=== PATIENT | female | born 1955 | race Caucasian/White ===

== ENCOUNTER 2018-12-26 11:39 | Inpatient (IN) | payer OTHER, BC ==
--- NOTE | 2018-12-26 12:14 | PDOC ---
History of Present Illness - General Chief Complaint: CVA/TIA Stated Complaint: POSSIBLE STROKE Time Seen by Provider: 12/26/18 11:48 History Source: Patient, Family - History of Present Illness Initial Comments: 12/26/18 12:38 63 y/o/f with PMHx of polymyalgia rheumatica and GERD here for weakness and slurred speech that occurred this morning. When she woke up this morning at 0630 she was having some right sided facial pressure similar to when she gets sinus infections. She used a nasal spray and continued her morning routine. Later in the morning she started to feel weak and states she felt weird and nauseous. Her sister gave her a baby aspirin and brought her daughter to come see her around 1100. As per the daughter the patient's speech was slow and slurred. The daughter did not notice any facial drooping but she did notice that the patient's face was more red than usual. Patient was also complaining of some right hand numbness at this time. As per the daughter the patients symptoms improved during the 15 minutes it took for EMS to transfer the patient here. Patient has also had intermittent headaches over the last month with associated blurry vision in both eyes. She has had similar headaches in the past when she has had sinus infections but has not had any sinus infections recently. She denies any vomiting, fever, cough, diarrhea, dysuria, chest pain, SOB, dizziness, or abd pain. Medical Hx: Polymyalgia rheumatica, GERD Surgical Hx: appendectomy - 40+ years ago Social Hx: smokes 1 cigarette a day, denies alcohol and other illicit substance use Past History - Past Medical History Allergies/Adverse Reactions: Allergies Allergy/AdvReac Type Severity Reaction Status Date / Time No Known Allergies Allergy Verified 12/26/18 11:43 - Suicide/Smoking/Psychosocial Hx Smoking History: Current every day smoker Number of Cigarettes Smoked Daily: 1 Information on smoking cessation initiated: No Hx Alcohol Use: No Drug/Substance Use Hx: No Review of Systems - Review of Systems Able to Perform ROS?: Yes Constitutional: Yes: Weakness. No: Chills, Fever HEENTM: No: Double Vision, Nose Congestion Respiratory: No: Cough, Shortness of Breath Cardiac (ROS): No: Chest Pain, Lightheadedness ABD/GI: Yes: Nausea. No: Abdominal Distended, Diarrhea, Vomiting : No: Dysuria Musculoskeletal: No: Back Pain Integumentary: Yes: Flushing Neurological: Yes: Headache, Numbness. No: Tingling *Physical Exam - Vital Signs Last Vital Signs Temp Pulse Resp BP Pulse Ox 98.3 F 83 18 143/82 97 12/26/18 11:43 12/26/18 11:43 12/26/18 11:43 12/26/18 11:43 12/26/18 11:43 - Physical Exam General Appearance: Yes: Nourished HEENT: positive: EOMI, Normal Voice, Symmetrical. negative: Sinus Tenderness Neck: positive: Supple. negative: Tender Respiratory/Chest: positive: Lungs Clear, Normal Breath Sounds. negative: Crackles, Rales, Rhonchi, Wheezing Cardiovascular: positive: Regular Rhythm, Regular Rate, S1, S2 Gastrointestinal/Abdominal: positive: Normal Bowel Sounds, Soft. negative: Tenderness Extremity: positive: Normal Capillary Refill. 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 Patients symptoms resolved in transit to hospital. Patient initially seen by Dr. Haynes. Stroke code activated. CT scan head - negative for acute intracranial pathology CBC, coags, UA grossly normal. Patient has no residual weakness on physical exam. CN nerves 2-12 normal, 5/5 strength upper and lower extremities, normal finger to nose, no loss of sensation. 12/26/18 13:15 CMP shows elevated triglycerides and cholesterol. MRI brain w/contrast and carotid ultrasound ordered. Spoke with Dr. Jain's covering service, awaiting admission. 12/26/18 13:[address] Jain, patient admitted. *DC/Admit/Observation/Transfer Diagnosis at time of Disposition: Slurred speech - Discharge Dispostion Condition at time of disposition: Good - Referrals Referrals: Vaughn Jain MD [Primary Care Provider] - - Patient Instructions - Post Discharge Activity
[2018-12-26 12:28] LABS: BASO % 0.7 % (0-2.0); EOS % 1.7 % (0-4.5); HEMATOCRIT 39.3 % (32.4-45.2); HEMOGLOBIN 13.1 GM/dL (10.7-15.3); LYMPH % 25.8 % (8-40); MCH 28.8 pg (25.7-33.7); MCHC 33.3 g/dl (32.0-36.0); MEAN CELL VOLUME 86.3 fl (80-96); MEAN PLT VOLUME 9.1 fl (7.5-11.1); MONO % 5.8 % (3.8-10.2); PLATELET COUNT 267 K/MM3 (134-434); RBC 4.56 M/mm3 (3.60-5.2); RDW 14.7 % (11.6-15.6); WHITE BLOOD COUNT 6.4 K/mm3 (4.0-10.0)
[2018-12-26 12:31] LABS: PH,URINE 7.5 (5.0-8.0); URINE APPEARANCE CLEAR; URINE BILIRUBIN NEGATIVE (NEGATIVE); URINE COLOR YELLOW; URINE GLUCOSE (UA) NEGATIVE (NEGATIVE); URINE KETONE NEGATIVE (NEGATIVE); URINE LEUK ESTERASE NEGATIVE (NEGATIVE); URINE NITRITE NEGATIVE (NEGATIVE); URINE PROTEIN NEGATIVE (NEGATIVE); URINE UROBILINOGEN 0.2 mg/dL (0.2-1.0)
[2018-12-26] MEDS: SODIUM CHLORIDE 1,000 ML IV SCH (12:34)
[2018-12-26 12:47] LABS: INR 1.09 (0.83-1.09); PROTHROMBIN TIME (PATIENT) 12.9 SEC (9.7-13.0)
[2018-12-26] MEDS ORDERED: ATORVASTATIN CA 80 MG TABLET (FP) PO ONE (12:58)
[2018-12-26] MEDS ORDERED: ASPIRIN 325 MG TABLET PO ONE (12:58)
[2018-12-26 13:00] LABS: BILIRUBIN,TOTAL 0.4 mg/dL (0.2-1); BLOOD UREA NITROGEN 14.3 mg/dL (7-18); CALCIUM 9.3 mg/dL (8.5-10.1); CREATININE 0.8 mg/dL (0.55-1.3); TOT PROT 7.6 g/dl (6.4-8.2)
[2018-12-26] MEDS ORDERED: ATORVASTATIN CA 80 MG TABLET (FP) ONE (13:13)
[2018-12-26] MEDS ORDERED: ASPIRIN 325 MG TABLET ONE (13:13)
[2018-12-26] MEDS ORDERED: ACETAMINOPHEN 325 MG TABLET (FP) PO PRN (13:44)
[2018-12-26] MEDS ORDERED: RANITIDINE HCL 150 MG TABLET (FP) ONE (13:50)
[2018-12-26] MEDS: RANITIDINE HCL 150 MG TABLET (FP) PO SCH ×2 (13:53→21:33)
--- NOTE | 2018-12-26 14:23 | PDOC ---
Documentation entered by Gonzalez Cuh SCRIBE, acting as scribe for Naima Haynes MD. Naima Haynes MD: This documentation has been prepared by the Vlad elizabeth Daniel, SCRIBE, under my direction and personally reviewed by me in its entirety. I confirm that the documentation accurately reflects all work, treatment, procedures, and medical decision making performed by me. Attending Attestation - Resident Resident Name: LizaLiorvolodymyrlucie Elva - ED Attending Attestation I have performed the following: I have examined & evaluated the patient, The case was reviewed & discussed with the resident, I agree w/resident's findings & plan, Exceptions are as noted - HPI HPI: 12/26/18 12:08 The patient is a 63 year old female with a past medical history of polymyalgia rheumatica and diverticulitis here today for evaluation of slurred speech. The patient reports that she woke up this morning and felt like she had a sinus infection and used a nasal spray. She reports that she began to feel weird ( patient could not elaborate more) around 9 AM and took a baby aspirin. Patient s daughter reports that at approximately 11 AM the patients speech became slow and slurred but made sense. Patient reports that she knew what she was saying and also notes that her blood pressure was elevated (systolic 150s). Pt also reports some right hand numbness which started about the same time as her slurred speech. At this time, the slurred speech and right hand weakness have resolved. Also as per the daughter, the patient has been having slow onset, diffuse, intermittent headaches for 1 month with associated bilateral blurry vision which are not present currently. Patient denies lightheadedness. Denies fever, chills. Denies chest pain, shortness of breath. Denies nausea, vomiting, diarrhea, abdominal pain. Allergies: NKA PCP: Vaughn Jain - Physicial Exam PE: 12/26/18 12:08 GENERAL: Awake, alert, and fully oriented, in no acute distress HEAD: No signs of trauma. No temporal ttp. EYES: PERRLA, EOMI, sclera anicteric, conjunctiva clear ENT: Auricles normal inspection, hearing grossly normal, nares patent, oropharynx clear without exudates. Moist mucosa NECK: Normal ROM, supple, no lymphadenopathy, JVD, or masses LUNGS: Breath sounds equal, clear to auscultation bilaterally. No wheezes, and no crackles HEART: Regular rate and rhythm, normal S1 and S2, no murmurs, rubs or gallops ABDOMEN: Soft, nontender, normoactive bowel sounds. No guarding, no rebound. No masses EXTREMITIES: Normal range of motion, no edema. No clubbing or cyanosis. No cords , erythema, or tenderness BACK: No midline spinal tenderness in cervical/thoracic/lumbar region NEUROLOGICAL: Normal speech, cranial nerves intact, negative pronator drift, 5/ 5 strength in all 4 extremities, normal sensation to light touch in all 4 extremities, normal cerebellar exam, normal gait, normal reflexes and tone SKIN: Warm, Dry, normal turgor, no rashes or lesions noted. - Medical Decision Making 12/26/18 12:[address] Sanchez. 12/26/18 13:30 63yo F hx PMR presents to the ED with resolved slurred speech and R hand weakness concerning for TIA vs CVA Vitals wnl Exam with no neuro deficits at this time CTH negative Case discussed with Dr. Sanchez at time of code bradley activation Not TPA candidate as current NIHSS is 0 Dr. Sanchez recommends asa 325, lipior 80, caroid US imaging and MRI brain w/o Pt admitted for further mgmt to Dr. Jain's service Case discussed in detail with admitting physician including history, physical exam and ancillary studies. Admitting physician has assumed care for the patient, will follow all pending diagnostics and will complete the evaluation and treatment. Heart Score/ECG Review #1 12/26/18 14:21 EKG read and int by me: NSR, rate 83, normal axis and intervals. No JUAN. TWI in lead III and flattening in avf. No previous EKG to compare NIH Stroke Scale - Last Known Well Date/Time & Onset Date Last Known Well: 12/26/18 Time Last Known Well: 11:00 - Initial Evaluation Level of consciousness: Alert Ask patient the month and their age: Answers both correctly Ask patient to open & close eyes; make fist and let go: Obeys both correctly Best gaze (horizontal eye movement): Normal Visual field testing: No visual field loss Facial paresis (Show teeth/raise eyebrows/close eyes tight): Normal symmetrical movement Motor Function: Left Arm: Normal Motor Function: Right Arm: Normal (extends arm 90 (or 45) degrees for 10 seconds without drift Motor Function: Left Leg: Normal (extends leg 30 degrees for 5 seconds without drift) Motor Function: Right Leg: Normal (extends leg 30 degrees for 5 seconds without drift) Limb Ataxia: No ataxia Sensory(Use pinprick test arms,legs,trunk,face/side to side): Normal Best language (Describe picture, name items, read sentences): No Aphasia Dysarthria (read several words): Normal articulation Extinction and Inattention: No abnormality - Total Score NIH Stroke Scale Score: 0
--- NOTE | 2018-12-26 14:44 | HP ---
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 No: CVA Cardiovascular: Yes: Hyperlipdemia Gastrointestinal: Yes: GERD ENT: Yes: Allergic Rhinitis, Sinusitis - Smoking History Smoking history: Current every day smoker Aproximately how many cigarettes per day: 1 - Alcohol/Substance Use Hx Alcohol Use: No Home Medications - Allergies Allergies/Adverse Reactions: Allergies Allergy/AdvReac Type Severity Reaction Status Date / Time No Known Allergies Allergy Verified 12/26/18 11:43 - Home Medications Home Medications: Ambulatory Orders Lansoprazole [Prevacid] 30 mg PO DAILY 12/26/18 Review of Systems - Review of Systems Constitutional: denies: Fever Eyes: reports: No Symptoms HENT: reports: Nasal Congestion Cardiovascular: denies: Chest Pain, Palpitations Respiratory: denies: SOB Gastrointestinal: denies: Abdominal Pain Genitourinary: reports: No Symptoms Neurological: reports: Change in Speech, Numbness (RIGHT ARM) Physical Examination Vital Signs: Vital Signs Temperature 98.3 F 12/26/18 11:43 Pulse Rate 85 12/26/18 12:35 Respiratory Rate 18 12/26/18 12:35 Blood Pressure 124/72 12/26/18 12:35 O2 Sat by Pulse Oximetry (%) 97 12/26/18 12:35 Eyes: Yes: EOM Intact Cardiovascular: Yes: Regular Rate and Rhythm Respiratory: Yes: Regular, CTA Bilaterally Gastrointestinal: Yes: Normal Bowel Sounds, Soft. No: Tenderness Edema: No Neurological: Yes: Alert, Oriented. No: Aphasia, Facial Droop, Lethargy, Numbness Labs: CBC, BMP 12/26/18 12:10 12/26/18 12:10 Imaging - Results Cat Scan: Report Reviewed Problem List - Problems (1) TIA (transient ischemic attack) Assessment/Plan: R/ CVA MRI HEAD STATIN,ASA NEURO AND CARDIO ECHO AND CAROTID TELE Code(s): G45.9 - TRANSIENT CEREBRAL ISCHEMIC ATTACK, UNSPECIFIED (2) HLD (hyperlipidemia) Assessment/Plan: STATIN Code(s): E78.5 - HYPERLIPIDEMIA, UNSPECIFIED (3) Slurred speech Assessment/Plan: ABOVE Code(s): R47.81 - SLURRED SPEECH
[2018-12-26 17:58] VITALS: BMI 28.8
[2018-12-26] MEDS: HEPARIN NA (PORCINE) 5,000 UNITS/ML 1ML VIAL SQ SCH (21:32)
[2018-12-27 07:43] LABS: BASO % 0.5 % (0-2.0); HEMATOCRIT 36.8 % (32.4-45.2); HEMOGLOBIN 12.2 GM/dL (10.7-15.3); LYMPH % 26.5 % (8-40); MCH 28.6 pg (25.7-33.7); MCHC 33.1 g/dl (32.0-36.0); MEAN CELL VOLUME 86.2 fl (80-96); MEAN PLT VOLUME 9.2 fl (7.5-11.1); MONO % 6.7 % (3.8-10.2); NEUT % 64.3 % (42.8-82.8); PLATELET COUNT 242 K/MM3 (134-434); RBC 4.27 M/mm3 (3.60-5.2); RDW 14.9 % (11.6-15.6); WHITE BLOOD COUNT 6.5 K/mm3 (4.0-10.0)
[2018-12-27 08:00] LABS: ALBUMIN 3.4 g/dl (3.4-5.0); ALK PHOS 83 U/L (45-117); ANION GAP 5 MMOL/L (8-16); BILIRUBIN,TOTAL 0.3 mg/dL (0.2-1); BLOOD UREA NITROGEN 13.9 mg/dL (7-18); CALCIUM 9.1 mg/dL (8.5-10.1); CHLORIDE 109 mmol/L (98-107); CO2 26 mmol/L (21-32); CREATININE 0.7 mg/dL (0.55-1.3); GLUCOSE,RANDOM 92 mg/dL (74-106); MAGNESIUM 2.3 mg/dL (1.8-2.4); POTASSIUM 4.5 mmol/L (3.5-5.1); SGOT/AST 13 U/L (15-37); SGPT/ALT 25 U/L (13-61); SODIUM 141 mmol/L (136-145); TOT PROT 6.5 g/dl (6.4-8.2)
--- NOTE | 2018-12-27 08:24 | PN ---
Progress Note, Physician - Current Medication List Current Medications: Active Medications Acetaminophen (Tylenol -) 650 mg PO Q4H PRN PRN Reason: PAIN Aspirin (Ecotrin -) 162 mg PO DAILY [facility] Atorvastatin Calcium (Lipitor -) 80 mg PO HS [facility] Heparin Sodium (Porcine) (Heparin -) 5,000 unit SQ BID [facility] Last Admin: 12/26/18 21:32 Dose: 5,000 unit Sodium Chloride (Normal Saline -) 1,000 mls @ 42 mls/hr IV ASDIR [facility] Last Admin: 12/26/18 12:34 Dose: 42 mls/hr Ranitidine HCl (Zantac -) 150 mg PO BID [facility] Last Admin: 12/26/18 21:33 Dose: 150 mg - Objective Vital Signs: Vital Signs Temperature 98.3 F 12/27/18 06:00 Pulse Rate 78 12/27/18 06:00 Respiratory Rate 17 12/27/18 06:00 Blood Pressure 119/70 12/27/18 06:00 O2 Sat by Pulse Oximetry (%) 95 12/26/18 21:00 Cardiovascular: Yes: Regular Rate and Rhythm Respiratory: Yes: Regular, CTA Bilaterally Gastrointestinal: Yes: Normal Bowel Sounds, Soft Edema: No Neurological: Yes: Alert, Oriented. No: Aphasia, Confusion, Dysarthria, Facial Droop Labs: CBC, BMP 12/27/18 06:28 12/27/18 06:28 INR, PTT INR 1.09 (0.83-1.09) 12/26/18 12:10 Problem List - Problems (1) CVA (cerebral vascular accident) Assessment/Plan: bihemispheric ECHO-CAROTID TELE CARDIO ASA/STATIN Code(s): I63.9 - CEREBRAL INFARCTION, UNSPECIFIED (2) TIA (transient ischemic attack) Code(s): G45.9 - TRANSIENT CEREBRAL ISCHEMIC ATTACK, UNSPECIFIED (3) HLD (hyperlipidemia) Assessment/Plan: STATIN Code(s): E78.5 - HYPERLIPIDEMIA, UNSPECIFIED (4) Slurred speech Assessment/Plan: ABOVE Code(s): R47.81 - SLURRED SPEECH (5) Pharyngeal lesion Assessment/Plan: ABNORMAL MRI ENT Code(s): J39.2 - OTHER DISEASES OF PHARYNX
[2018-12-27] MEDS: HEPARIN NA (PORCINE) 5,000 UNITS/ML 1ML VIAL SQ SCH ×2 (09:10→21:10)
[2018-12-27] MEDS: ASPIRIN COATED 81 MG TABLET.EC PO SCH (09:10)
[2018-12-27] MEDS: RANITIDINE HCL 150 MG TABLET (FP) PO SCH ×2 (09:10→21:10)
--- NOTE | 2018-12-27 09:32 | CON.NEURO ---
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 No: CVA Cardio/Vascular: Yes: Hyperlipdemia Gastrointestinal: Yes: GERD ENT: Yes: Allergic Rhinitis, Sinusitis - Alcohol/Substance Use Hx Alcohol Use: No - Smoking History Smoking history: Current every day smoker Aproximately how many cigarettes per day: 1 Home Medications - Allergies Allergies/Adverse Reactions: Allergies Allergy/AdvReac Type Severity Reaction Status Date / Time No Known Allergies Allergy Verified 12/26/18 11:43 - Home Medications Home Medications: Ambulatory Orders Lansoprazole [Prevacid] 30 mg PO DAILY 12/26/18 Physical Exam-Neuro Vital Signs: Vital Signs Temperature 98.3 F 12/27/18 06:00 Pulse Rate 78 12/27/18 06:00 Respiratory Rate 17 12/27/18 06:00 Blood Pressure 119/70 12/27/18 06:00 O2 Sat by Pulse Oximetry (%) 95 12/26/18 21:00 Labs: CBC, BMP 12/27/18 06:28 12/27/18 06:28 INR, PTT INR 1.09 (0.83-1.09) 12/26/18 12:10 Assessment/Plan cc Slurring of speech HPI 63 year old female history of Polymyalgia Rheuamtica and Diverticulitis. She came with slurring of speech and had mri done showed bihemispheric stroke. Patient has recovered completely. Carotid ultrasound was normal. Her esr is noraml, she was diagnosed with polymyalgia rheumatica and not on steroid. She is feeling better waiting for plant health care technician She had mri of brain showed there is lesion of parotid gland and waiting to see ENT Medical History As above Medication: lipitor and aspirin Allergies: NKA ROS,FH SH reviewed in chart NEUROLOGICAL EXAMINATION Alert oriented x 3, neck is supple, vss, eomi, pupils reactive no face asymmetry moving all ext sensation is normal mri showed multiple small bilateral lacunar stroke carotid ultrasound no acute findings cardiac consult pending. Assessment/Plan 63 year old female came with slurring of speech, symptoms resolved and had bihemispheric stroke on mri. Clinically she seems to be resolved. Patient may have bihemspheric involvement due to cardiac thrmboembolism. 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 I would order mra of brain - continue apsirin and statin -stroke education and smoking cessation Thanking you so much Jerrod Sanchez
--- NOTE | 2018-12-27 12:28 | CON.CARD ---
Consult Consult Specialty:: Cardiology Referred by:: Vaughn Jain Reason for Consultation:: CVA - History of Present Illness Chief Complaint: slurred speech History of Present Illness: Ms. Bowman is a 63 year old female with a pmhx of polymyalgia rheumatica and GERD admitted with facial pressure and slurred speech. No chest pain, sob, or palpitations. No pnd, orthopnea, edema. 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 No: CVA Cardio/Vascular: Yes: Hyperlipdemia Gastrointestinal: Yes: GERD ENT: Yes: Allergic Rhinitis, Sinusitis - Alcohol/Substance Use Hx Alcohol Use: No - Smoking History Smoking history: Current every day smoker Aproximately how many cigarettes per day: 1 Home Medications - Allergies Allergies/Adverse Reactions: Allergies Allergy/AdvReac Type Severity Reaction Status Date / Time No Known Allergies Allergy Verified 12/26/18 11:43 - Home Medications Home Medications: Ambulatory Orders Lansoprazole [Prevacid] 30 mg PO DAILY 12/26/18 Vital Signs: Vital Signs Temperature 98.3 F 12/27/18 10:00 Pulse Rate 76 12/27/18 10:00 Respiratory Rate 18 12/27/18 10:00 Blood Pressure 116/66 12/27/18 10:00 O2 Sat by Pulse Oximetry (%) 94 L 12/27/18 09:00 Constitutional: Yes: No Distress Neck: Yes: Supple Respiratory: Yes: CTA Bilaterally Gastrointestinal: Yes: Normal Bowel Sounds, Soft Cardiovascular: Yes: Regular Rate and Rhythm JVD: No Carotid Bruit: No PMI: Non-Displaced Heart Sounds: Yes: S1, S2 Murmur: No: Systolic Murmur Edema: No - Other Data Labs, Other Data: CBC, BMP 12/27/18 06:28 12/27/18 06:28 INR, PTT INR 1.09 (0.83-1.09) 12/26/18 12:10 Troponin, BNP 12/26/18 12/26/18 12/27/18 12:10 19:12 06:28 Troponin I < 0.02 < 0.02 < 0.02 Troponin, BNP 12/26/18 12/26/18 12/27/18 12:10 19:12 06:28 Troponin I < 0.02 < 0.02 < 0.02 Imaging - Results Chest X-ray: Report Reviewed Cat Scan: Report Reviewed MRI: Report Reviewed EKG: Image Reviewed Assessment/Plan Ms. Bowman is a 63 year old female with a pmhx of polymyalgia rheumatica and GERD admitted with facial pressure and slurred speech. No chest pain, sob, or palpitations. No pnd, orthopnea, edema. 1) CVA -MRI with acute b/l cva F/u neuro evaluation Carotids no stenosis EKG: sinus rhythm at 83bpm, nl axis, nl st segments -Monitor on tele Plan for echo On aspirin/statin. Monitor bp to see if needs an agent. -Would plan for residential outpatient event monitor for afib evaluation after discharge.
--- NOTE | 2018-12-27 12:46 | EKG ---
Test Reason : Blood Pressure : / mmHG Vent. Rate : 083 BPM Atrial Rate : 083 BPM P-R Int : 158 ms QRS Dur : 088 ms QT Int : 388 ms P-R-T Axes : 047 -07 002 degrees QTc Int : 455 ms NORMAL SINUS RHYTHM NORMAL ECG NO PREVIOUS ECGS AVAILABLE Confirmed by Los Green MD ([id number]) on 12/27/2018 12:46:36 PM Referred By: Confirmed By:Los Green MD
--- NOTE | 2018-12-27 13:03 | ECHO ---
Name: CARLY COLINDRES Exam:Adult Echocardiogram Study Date: 12/27/2018 11:29 AM Age: 63 yrs Reason For Study: Arrhythmia Height: 60 in Weight: 147 lb BSA: 1.6 m2 MMode/2D Measurements & Calculations IVSd: 1.0 cm Ao root diam: 3.1 cm LVIDd: 4.5 cm LA dimension: 3.3 cm LVIDs: 3.3 cm LVPWd: 0.98 cm EDV(Teich): 93.8 ml LVOT diam: 2.1 cm ESV(Teich): 45.3 ml Doppler Measurements & Calculations MV E max gamaliel: 40.0 cm/sec Ao V2 max: 157.1 cm/sec MV A max gamaliel: 59.2 cm/sec Ao max P.9 mmHg MV E/A: 0.68 Ao V2 mean: 99.9 cm/sec MV dec time: 0.21 sec Ao mean P.7 mmHg Ao V2 VTI: 29.6 cm KYLAH(I,D): 2.0 cm2 KYLAH(V,D): 2.1 cm2 LV V1 max P.0 mmHg SV(LVOT): 58.4 ml LV V1 mean P.8 mmHg LV V1 max: 99.7 cm/sec LV V1 mean: 62.7 cm/sec LV V1 VTI: 17.7 cm TR max gamaliel: 175.5 cm/sec Med Peak E' Gamaliel: 5.3 cm/sec TR max P.4 mmHg Med E/e': 7.6 Lat Peak E' Gamaliel: 9.8 cm/sec Lat E/e': 4.1 Procedure A two-dimensional transthoracic echocardiogram with color flow and Doppler was performed. The patient was in normal sinus rhythm during the exam. Left Ventricle The left ventricular size, thickness and function are normal. Ejection Fraction = 55%. Grade I diasto lic dysfunction, (abnormal relaxation pattern). Right Ventricle The right ventricle is normal in size and function. Atria Normal left and right atrial size and function. Mitral Valve The mitral valve is grossly normal. There is trace mitral regurgitation. Tricuspid Valve The tricuspid valve is not well visualized, but is grossly normal. There is trace tricuspid regurgita tion. There was insufficient TR detected to calculate RV systolic pressure. Aortic Valve There is mild to moderate aortic sclerosis.;. No hemodynamically significant valvular aortic stenosis . Pulmonic Valve The pulmonic valve is not well seen, but is grossly normal. Trace pulmonic valvular regurgitation. Great Vessels The aortic root is normal size. Pericardium/Pleura There is no pericardial effusion. Interpretation Summary The left ventricular size, thickness and function are normal Normal left and right atrial size and function. No hemodynamically significant valvular aortic stenosis. There is trace mitral regurgitation. There is trace tricuspid regurgitation. There was insufficient TR detected to calculate RV systolic pressure. MD Perez Beltran 12/27/2018 01:02 PM
[2018-12-27] MEDS: SODIUM CHLORIDE 1,000 ML IV SCH (15:09)
[2018-12-27] MEDS ORDERED: ATORVASTATIN CA 80 MG TABLET (FP) PO SCH (22:00)
--- NOTE | 2018-12-28 08:39 | DS ---
Physical Examination Vital Signs: Vital Signs Temperature 98.0 F 12/28/18 06:00 Pulse Rate 76 12/28/18 06:00 Respiratory Rate 18 12/28/18 06:00 Blood Pressure 137/78 12/28/18 06:00 O2 Sat by Pulse Oximetry (%) 94 L 12/27/18 20:32 Findings/Remarks: no complaints Cardiovascular: Yes: Regular Rate and Rhythm Respiratory: Yes: Regular, CTA Bilaterally Gastrointestinal: Yes: Normal Bowel Sounds, Soft. No: Tenderness Neurological: Yes: Alert, Oriented. No: Ataxia, Facial Droop Labs: CBC, BMP 12/27/18 06:28 12/27/18 06:28 Discharge Summary Reason For Visit: SLURRED SPEECH Current Active Problems CVA (cerebral vascular accident) (Acute) HLD (hyperlipidemia) (Acute) Pharyngeal lesion (Acute) Slurred speech (Acute) TIA (transient ischemic attack) (Acute) Hospital Course: - Problems (1) CVA (cerebral vascular accident) Assessment/Plan: bihemispheric [id number] noted no thrombus or sig stenosis TELE no arrhythmias noted CARDIO on board ASA/STATIN will need extended monitoring as outpatient Code(s): I63.9 - CEREBRAL INFARCTION, UNSPECIFIED (2) TIA (transient ischemic attack)--CVA Code(s): G45.9 - TRANSIENT CEREBRAL ISCHEMIC ATTACK, UNSPECIFIED (3) HLD (hyperlipidemia) Assessment/Plan: STATIN Code(s): E78.5 - HYPERLIPIDEMIA, UNSPECIFIED (4) Slurred speech Assessment/Plan: resolved ABOVE Code(s): R47.81 - SLURRED SPEECH (5) Pharyngeal lesion Assessment/Plan: ABNORMAL MRI ENT Code(s): J39.2 - OTHER DISEASES OF PHARYNX Condition: Good - Instructions Referrals: Vaughn Jain MD [Primary Care Provider] - Disposition: HOME - Home Medications Comprehensive Discharge Medication List: Ambulatory Orders Acetaminophen [Tylenol .Regular Strength -] 650 mg PO Q4H PRN tablet 12/28/18 Aspirin Coated [Ecotrin -] 162 mg PO DAILY tablet.ec 12/28/18 Atorvastatin Ca [Lipitor] 80 mg PO HS #30 tablet 12/28/18 Ranitidine [Zantac -] 150 mg PO BID #60 tablet 12/28/18
[2018-12-28] MEDS: HEPARIN NA (PORCINE) 5,000 UNITS/ML 1ML VIAL SQ SCH (09:01)
[2018-12-28] MEDS: ASPIRIN COATED 81 MG TABLET.EC PO SCH (09:01)
[2018-12-28] MEDS: RANITIDINE HCL 150 MG TABLET (FP) PO SCH (09:01)
--- NOTE | 2018-12-28 15:09 | PN ---
Progress Note, Physician Chief Complaint: No complaints Wants to go home Tele: sinus with no events History of Present Illness: Ms. Bowman is a 63 year old female with a pmhx of polymyalgia rheumatica and GERD admitted with facial pressure and slurred speech. No chest pain, sob, or palpitations. No pnd, orthopnea, edema. - Current Medication List Current Medications: Active Medications Acetaminophen (Tylenol -) 650 mg PO Q4H PRN PRN Reason: PAIN Aspirin (Ecotrin -) 162 mg PO DAILY [facility] Last Admin: 12/28/18 09:01 Dose: 162 mg Atorvastatin Calcium (Lipitor -) 80 mg PO HS [facility] Last Admin: 12/27/18 21:10 Dose: 80 mg Heparin Sodium (Porcine) (Heparin -) 5,000 unit SQ BID [facility] Last Admin: 12/28/18 09:01 Dose: 5,000 unit Ranitidine HCl (Zantac -) 150 mg PO BID [facility] Last Admin: 12/28/18 09:01 Dose: 150 mg - Objective Vital Signs: Vital Signs Temperature 98.1 F 12/28/18 10:00 Pulse Rate 75 12/28/18 10:00 Respiratory Rate 18 12/28/18 10:00 Blood Pressure 126/72 12/28/18 10:00 O2 Sat by Pulse Oximetry (%) 95 12/28/18 09:00 Constitutional: Yes: No Distress Neck: Yes: Supple Cardiovascular: Yes: Regular Rate and Rhythm, S1, S2. No: JVD, Murmur Respiratory: Yes: CTA Bilaterally Gastrointestinal: Yes: Soft Edema: No Labs: CBC, BMP 12/27/18 06:28 12/27/18 06:28 INR, PTT INR 1.09 (0.83-1.09) 12/26/18 12:10 Assessment/Plan Ms. Bowman is a 63 year old female with a pmhx of polymyalgia rheumatica and GERD admitted with facial pressure and slurred speech. No chest pain, sob, or palpitations. No pnd, orthopnea, edema. 1) CVA -MRI with acute b/l cva F/u neuro evaluation Carotids no stenosis on imaging EKG: sinus rhythm at 83bpm, nl axis, nl st segments -Echocardiogram with normal LVEF and no significant valve disease. On aspirin/statin. Monitor bp to see if needs an agent. -Sinus on tele. Would plan for alf outpatient 30 day event monitor for afib evaluation after discharge. If this is negative than would consider loop recorder based on discussion with neurology and whether they feel strongly.
[2018-12-28 15:32] VITALS: BP 118/71; PULSE 79; TEMP 98.8
== END 2018-12-28 16:40 | disposition home or self-care (01) | DRG 66 ==
LOC: JER 11:39 → JERBED 12:02 → J4S 16:46
PROVIDERS: ADMIT Family Medicine; ATTEND Family Medicine
DX: I63.9 Cerebral infarction, unspecified (principal); R47.81 Slurred speech; G83.21 Monoplegia of upper limb affecting right dominant side; J39.2 Other diseases of pharynx; M35.3 Polymyalgia rheumatica; K21.9 Gastro-esophageal reflux disease without esophagitis; F17.210 Nicotine dependence, cigarettes, uncomplicated; E78.1 Pure hyperglyceridemia; E78.00 Pure hypercholesterolemia, unspecified; E78.5 Hyperlipidemia, unspecified
CPT/HCPCS: 36415; 70450-TC; 70544-TC; 70551-TC; 71045-TC-FY; 80053; 80061; 81003; 82550; 83036; 83721; 83735; 84443; 84484; 85025; 85610; 85651; 86140; 86850; 86900; 86901; 93005; 93010; 93306-TC; 93880-TC; 93970-TC; 97116-GP; 97161-GP; 99284-25; J1644; J7030

== ENCOUNTER 2019-02-04 14:58 | Emergency (ER) | payer OTHER, BC ==
[2019-02-04 15:05] VITALS: TEMP 98.2; BMI 28.7
[2019-02-04] MEDS ORDERED: SODIUM CHLORIDE 1,000 ML IV STA ×2 (16:38→19:01)
[2019-02-04] MEDS ORDERED: ACETAMINOPHEN 1000 MG/100 ML VIAL (NON FORMULARY) IVPB ONE (16:38)
[2019-02-04] MEDS ORDERED: ONDANSETRON 4 MG/2 ML VIAL IVPUSH ONE (16:38)
[2019-02-04] MEDS ORDERED: FAMOTIDINE 20 MG/50 ML IVPB 20 MG/50 ML MG IVPB ONE ×2 (16:39→16:47)
--- NOTE | 2019-02-04 16:42 | PDOC ---
History of Present Illness - General Chief Complaint: Diarrhea Stated Complaint: DIZZY/HEADACHE/NAUSEA Time Seen by Provider: 02/04/19 16:17 History Source: Patient, Family Exam Limitations: No Limitations Past History - Travel Traveled outside of the country in the last 30 days: No Close contact w/someone who was outside of country & ill: No - Past Medical History Allergies/Adverse Reactions: Allergies Allergy/AdvReac Type Severity Reaction Status Date / Time No Known Allergies Allergy Verified 12/26/18 11:43 Home Medications: Ambulatory Orders Acetaminophen [Tylenol .Regular Strength -] 650 mg PO Q4H PRN tablet 12/28/18 Aspirin Coated [Ecotrin -] 162 mg PO DAILY tablet.ec 12/28/18 Atorvastatin Ca [Lipitor] 80 mg PO HS #30 tablet 12/28/18 Ranitidine [Zantac -] 150 mg PO BID #60 tablet 12/28/18 Ondansetron [Zofran Odt -] 4 mg SL TID #10 od.tablet 02/04/19 CVA: Yes (TIA) COPD: No GI Disorders: Yes - Surgical History Appendectomy: Yes - Immunization History Immunization Up to Date: No - Psycho Social/Smoking Cessation Hx Smoking History: Never smoked Have you smoked in the past 12 months: No Number of Cigarettes Smoked Daily: 1 Information on smoking cessation initiated: No 'Breaking Loose' booklet given: 12/26/18 Hx Alcohol Use: No Drug/Substance Use Hx: No Substance Use Type: None Hx Substance Use Treatment: No Review of Systems - Review of Systems Able to Perform ROS?: Yes Comments:: 02/04/19 17:03 CONSTITUTIONAL: Absent: fever, chills, diaphoresis, generalized weakness, malaise, loss of appetite HEENT: Absent: rhinorrhea, nasal congestion, throat pain, throat swelling, difficulty swallowing, mouth swelling, ear pain, eye pain, visual Changes CARDIOVASCULAR: Absent: chest pain, loss of consciousness, palpitations, irregular heart rate, peripheral edema RESPIRATORY: Absent: cough, shortness of breath, dyspnea with exertion, orthopnea, wheezing, stridor, hemoptysis GASTROINTESTINAL: Present: abdominal pain, nausea, vomiting, diarrhea Absent: abdominal pain, abdominal distension, nausea, vomiting, diarrhea, constipation, melena, hematochezia GENITOURINARY: Absent: dysuria, frequency, urgency, hesitancy, hematuria, flank pain, genital pain MUSCULOSKELETAL: Absent: myalgia, arthralgia, joint swelling SKIN: Absent: rash, itching, pallor HEMATOLOGIC/IMMUNOLOGIC: Absent: easy bleeding, easy bruising, lymphadenopathy, frequent infections ENDOCRINE: Absent: unexplained weight gain, unexplained weight loss, heat intolerance, cold intolerance NEUROLOGIC: Present: headache, dizziness Absent:focal weakness or paresthesias, unsteady gait, seizure, mental status changes, bladder or bowel incontinence PSYCHIATRIC: Absent: anxiety, depression, suicidal or homicidal ideation, hallucinations. Is the patient limited Tuvaluan proficient: No *Physical Exam - Vital Signs Last Vital Signs Temp Pulse Resp BP Pulse Ox 98.2 F 96 H 16 121/70 97 02/04/19 15:00 02/04/19 15:00 02/04/19 15:00 02/04/19 15:00 02/04/19 15:00 - Physical Exam Comments: 02/04/19 17:04 GENERAL: Well developed, well nourished. Awake and alert. No acute distress. HEENT: Normocephalic, atraumatic. PERRLA, EOMI. No conjunctival pallor. Sclera are non- icteric. Moist mucous membranes. Oropharynx is clear. NECK: Supple. Full ROM. No JVD. Carotid pulses 2+ and symmetric, without bruits. No thyromegaly. No lymphadenopathy. CARDIOVASCULAR: Regular rate and rhythm. No murmurs, rubs, or gallops. Distal pulses are 2+ and symmetric. PULMONARY: No evidence of respiratory distress. Lungs clear to auscultation bilaterally. No wheezing, rales or rhonchi. ABDOMINAL: TTP of the epigastric region, (-)Louise's sign. Soft. Non-distended. No rebound or guarding. No organomegaly. Normoactive bowel sounds. MUSCULOSKELETAL Normal range of motion at all joints. No bony deformities or tenderness. No CVA tenderness. EXTREMITIES: No cyanosis. No clubbing. No edema. No calf tenderness. SKIN: Warm and dry. Normal capillary refill. No rashes. No jaundice. NEUROLOGICAL: Alert, awake, appropriate. Cranial nerves 2-12 intact. No deficits to light touch and temperature in face, upper extremities and lower extremities. No motor deficits in the in face, upper extremities and lower extremities. Normoreflexic in the upper and lower extremities. Normal speech. Toes are down- going bilaterally. Gait is normal without ataxia. PSYCHIATRIC: Cooperative. Good eye contact. Appropriate mood and affect. ED Treatment Course - LABORATORY CBC & Chemistry Diagram: 02/04/19 16:35 02/04/19 16:35 Medical Decision Making - Medical Decision Making 02/04/19 17:05 The patient is a 63-year-old female with past medical history of TIA, diverticulitis, polymyalgia rheumatica, presents to the ER today for nausea, vomiting, diarrhea and dizziness. The patient states her symptoms started on after she saw her primary care doctor for a sinus infection. She states she was placed on a Z-Raymond at that time. She states she started the Z- Raymond after seeing the doctor and had diarrhea that night. She had some rice which helped her symptoms. The next day she took another dose of the Z-Raymond and had diarrhea as well as vomiting. She did not take her dose of the Z-Raymond today. She also notes that she is lightheaded and dizzy and has a slight headache. Denies fevers, chills, chest pain, shortness of breath, difficulty breathing, constipation and urinary symptoms. A/P: Abdominal pain On exam patient with epigastric tenderness, likely due to vomiting. No lower abdominal pain to suggest diverticulitis. Negative Louise sign. Likely adverse medication reaction. Basic labs, urine and supportive medication ordered. Given patient had recent TIA and is complaining of dizziness while on CT head to rule out adverse event onset of vomiting Reevaluate 02/04/19 19:36 Lab work with no acute findings at this time. Electrolytes grossly normal EKG shows a rate of 85 bpm, normal sinus rhythm. Normal intervals and axis. No acute ST-T wave changes. CT scan shows no acute pathology at this time. Note of an old right basal ganglia lacunar infarct and possibly old left lacunar infarct on the occipital cortex noted. Patient feels better after fluids and medication. Dizziness has completely resolved. Patient likely dizzy due to dehydration given diarrhea and vomiting We will discharge home with strict return precautions. Instructed patient to stop taking the Z-Raymond and follow-up with her primary care doctor on Wednesday I discussed the physical exam findings, ancillary test results and final diagnoses with the patient. I answered all of the patient's questions. The patient was satisfied with the care received and felt comfortable with the discharge plan and treatment plan. The Patient agrees to follow up with the primary care physician/specialist within 24-72 hours. Return precautions were given. Discharge - Discharge Information Problems reviewed: Yes Clinical Impression/Diagnosis: Dehydration Diarrhea Qualifiers: Diarrhea type: unspecified type Qualified Code(s): R19.7 - Diarrhea, unspecified Vomiting Qualifiers: Vomiting type: unspecified Vomiting Intractability: non-intractable Nausea presence: with nausea Qualified Code(s): R11.2 - Nausea with vomiting, unspecified Condition: Stable - Admission No - Additional Discharge Information Prescriptions: Ondansetron [Zofran Odt -] 4 mg SL TID #10 od.tablet - Follow up/Referral Referrals: Vaughn Jain MD [Primary Care Provider] - - Patient Discharge Instructions Patient Printed Discharge Instructions: DI for Vomiting -- Adult Additional Instructions: You have vomiting and diarrhea. I suspect this is due to the antibiotics you are taking in combination with your new medications. Please stop the Z-Raymond. Take all your other home medications as prescribed. You were prescribed Zofran. Please take this as needed for nausea or vomiting. Avoid all dairy products until 48 hours after the vomiting/diarrhea has resolved. Eat a bland diet including apple sauce, toast, bananas, and plain rice Drink plenty of fluids including pedialyte, watered down juices and water Follow up with your primary care doctor on Wednesday Return to the ED if you develop fevers, abdominal pain, worsening vomiting, or if you have any changes in your symptoms. - Post Discharge Activity
[2019-02-04] MEDS ORDERED: ONDANSETRON 4 MG/2 ML VIAL ONE (16:47)
[2019-02-04] MEDS ORDERED: ACETAMINOPHEN INJECTION 100 ML IVPB ONE (16:47)
[2019-02-04 17:04] LABS: BASO % 1.1 % (0-2.0); EOS % 1.9 % (0-4.5); HEMATOCRIT 40.7 % (32.4-45.2); HEMOGLOBIN 13.2 GM/dL (10.7-15.3); LYMPH % 26.9 % (8-40); MCH 28.3 pg (25.7-33.7); MCHC 32.3 g/dl (32.0-36.0); MEAN CELL VOLUME 87.5 fl (80-96); MEAN PLT VOLUME 9.2 fl (7.5-11.1); MONO % 13.9 % (3.8-10.2); NEUT % 56.2 % (42.8-82.8); PLATELET COUNT 223 K/MM3 (134-434); RBC 4.65 M/mm3 (3.60-5.2); RDW 14.2 % (11.6-15.6); WHITE BLOOD COUNT 4.8 K/mm3 (4.0-10.0)
[2019-02-04 17:07] LABS: EPI CELLS 2.1 /HPF (0-5/HPF); HYALINE CASTS 1 /lpf (0-8); URINE APPEARANCE CLEAR; URINE BACTERIA 5.5 /hpf (NEGATIVE); URINE BILIRUBIN NEGATIVE (NEGATIVE); URINE COLOR YELLOW; URINE GLUCOSE (UA) NEGATIVE (NEGATIVE); URINE KETONE NEGATIVE (NEGATIVE); URINE LEUK ESTERASE 1+ (NEGATIVE); URINE NITRITE NEGATIVE (NEGATIVE); URINE PROTEIN NEGATIVE (NEGATIVE); URINE RBC 1 /hpf (0-4); URINE UROBILINOGEN 0.2 mg/dL (0.2-1.0); URINE WBC 2 /hpf (0-5)
[2019-02-04 17:16] LABS: INR 1.17 (0.83-1.09); PROTHROMBIN TIME (PATIENT) 13.8 SEC (9.7-13.0)
[2019-02-04 17:28] LABS: ALBUMIN 3.7 g/dl (3.4-5.0); BILIRUBIN,TOTAL 0.5 mg/dL (0.2-1); BLOOD UREA NITROGEN 7.6 mg/dL (7-18); CALCIUM 9.1 mg/dL (8.5-10.1); CREATININE 0.8 mg/dL (0.55-1.3); POTASSIUM 3.9 mmol/L (3.5-5.1); TOT PROT 7.2 g/dl (6.4-8.2)
[2019-02-04 19:17] VITALS: BP 120/75; PULSE 71
--- NOTE | 2019-02-05 22:00 | EKG ---
Test Reason : Blood Pressure : / mmHG Vent. Rate : 085 BPM Atrial Rate : 085 BPM P-R Int : 156 ms QRS Dur : 084 ms QT Int : 378 ms P-R-T Axes : 037 -01 003 degrees QTc Int : 449 ms NORMAL SINUS RHYTHM NORMAL ECG WHEN COMPARED WITH ECG OF 26-DEC-2018 12:07, NO SIGNIFICANT CHANGE WAS FOUND Confirmed by Agnieszka Small ([id number]) on 02/05/2019 10:00:31 PM Referred By: Confirmed By:Agnieszka Small
== END 2019-02-04 20:04 | disposition home or self-care (01) ==
LOC: JER 14:58
PROC: 3E0337Z Introduction of Electrolytic and Water Balance Substance into Peripheral Vein, Percutaneous Approach (ICD-10-PCS; principal; 2019-02-04)
PROC: 3E033GC Introduction of Other Therapeutic Substance into Peripheral Vein, Percutaneous Approach (ICD-10-PCS; 2019-02-04)
PROC: 3E033NZ Introduction of Analgesics, Hypnotics, Sedatives into Peripheral Vein, Percutaneous Approach (ICD-10-PCS; 2019-02-04)
PROC: 3E033GC Introduction of Other Therapeutic Substance into Peripheral Vein, Percutaneous Approach (ICD-10-PCS; 2019-02-04)
DX: E86.0 Dehydration (principal)
CPT/HCPCS: 36415; 70450-TC; 80053; 81003; 83690; 85025; 85610; 87086; 87186; 93005; 93010; 96361; 96365; 96375; 99283-25; J0131; J7030

== ENCOUNTER 2023-10-14 04:51 | Day surgery (SDC) | payer BC, OTHER ==
[2023-10-12 15:45] VITALS: BMI 28.9
[2023-10-14 13:09] VITALS: TEMP 97.7
[2023-10-14 13:51] VITALS: RESP 18
[2023-10-14 13:52] VITALS: BP 121/66; PULSE 60
== END 2023-10-14 14:10 | disposition home or self-care (01) ==
LOC: JASU-ENDO 04:51
PROVIDERS: ATTEND Internal Medicine Gastroenterology
PROC: 0DBN8ZX Excision of Sigmoid Colon, Via Natural or Artificial Opening Endoscopic, Diagnostic (ICD-10-PCS; 2023-10-14)
PROC: 0DBK8ZX Excision of Ascending Colon, Via Natural or Artificial Opening Endoscopic, Diagnostic (ICD-10-PCS; principal; 2023-10-14 11:30)
DX: Z12.11 Encounter for screening for malignant neoplasm of colon (principal); D12.2 Benign neoplasm of ascending colon; K52.9 Noninfective gastroenteritis and colitis, unspecified; K57.30 Diverticulosis of large intestine without perforation or abscess without bleeding; D50.9 Iron deficiency anemia, unspecified
CPT/HCPCS: 88305-TC; 88342-TC